=== PATIENT | male | born 1955 | race Caucasian/White ===

== ENCOUNTER → 2018-06-09 14:30 | Outpatient (CLI) | payer OTHER | END | disposition home or self-care (01) | LOC: D.MRI 14:30 | DX: M25.571 Pain in right ankle and joints of right foot (principal) ==

== ENCOUNTER 2018-07-06 10:15 | Day surgery (SDC) | payer OTHER ==
[2018-07-05 14:13] LABS: HEMATOCRIT 36.8 % (42.0-54.0); MCH 31.4 pg (26.0-34.0); MCHC 35.3 g/dL (31.0-37.0); MCV 88.9 fL (80.0-100.0); MEAN PLATELET VOLUME 9.2 fL (7.4-10.4); RBC 4.14 10x6/uL (4.20-6.10); WBC 6.5 10x3/uL (4.8-10.8)
[2018-07-05 14:35] LABS: CALCIUM 8.8 mg/dL (8.5-10.1); CARBON DIOXIDE 29.1 mmol/L (21.0-32.0); CREATININE - SERUM 1.1 mg/dL (0.6-1.3); POTASSIUM - SERUM 4.1 mmol/L (3.5-5.1)
[~2018-07-06] VITALS: Ht 180.3 cm; Wt 76.2 kg
[~2018-07-06 10:15] MED LIST: BAYER CHEWABLE81 MG PO; GLIPIZIDE10 MG PO; GLUCOPHAGE1000 MG PO; PRAVASTATIN SOD10 MG PO
[2018-07-06 13:07] VITALS: BP 153/82; Ht 180.3 cm; Wt 76.2 kg
[2018-07-06] MEDS ORDERED: HYDROCODON-ACE1 EA10 PO (15:19)
--- NOTE | 2018-07-06 19:12 | NUR ---
1729-PRESCRIPTION TO TO GET FILLED BEFORE PHARMACY CLOSES. 1899- RETURNS, DISCHARGE INSTRUCTIONS REVIEWED. 1904-D/C HOME VIA WHEELCHAIR.
--- NOTE | 2018-07-07 09:40 | OP ---
PATIENT NAME: KATE HUNT MEDICAL RECORD: [id number] :55 LOCATION:[facility] ADMISSION DATE: SURGEON: TARIK ROSE MD DATE OF OPERATION: 07/06/2018 PREOPERATIVE DIAGNOSES: 1. Right ankle instability. 2. 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 3. Intractable plantar keratosis, plantar aspect of right foot. POSTOPERATIVE DIAGNOSES. 1. Right ankle instability. 2. 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 3. Intractable plantar keratosis, plantar aspect of right foot. PROCEDURES: 1. Open Brostrom procedure of the lateral ankle with internal brace. 2. Open repair of a split peroneus brevis tendon. 3. Excision of intractable plantar keratosis with removal of portion of the bony condyle. SURGEON: Tarik Rose MD ANESTHESIA: General. INTRAOPERATIVE COMPLICATIONS: None. SUMMARY OF PATHOLOGIC FINDINGS: Consistent with preoperative diagnosis, the patient had a complete tear of the AITF as well as calcaneofibular ligament. Furthermore, the patient had a longitudinal split in the peroneus brevis again consistent with the MRI and lastly, the patient had a large intractable plantar keratosis with a prominent condyle. OPERATIVE SUMMARY IN DETAIL: After obtaining the appropriate preoperative orthopedic surgery consent as well as anesthetic consultation, evaluation, and clearance, the patient was brought to the operating room and placed on the operating table in the supine position. After general laryngeal mask airway was administered, tourniquet was placed in the proximal aspect of the right lower extremity. The patient was then placed in a left lateral decubitus position. All pressure points were well padded to include down leg peroneal pad as well as axillary roll. The patient was held firmly to the operating table using the vacuum pack suction system table. Right lower extremity was then prepped and draped in routine sterile fashion. The leg was elevated and exsanguinated, tourniquet inflated to 350 mmHg. A curvilinear incision was made directly over the midline of the fibula in order to do both operative indications at this site to one incision. Dissection was carried anteriorly. The absence of the AITF as well as the calcaneofibular were noted. A single 4.75 SwiveLock from [employer] was placed with a double stranded FiberTape into the nonarticular aspect of the calcaneus on the medial side, this was then anchored into the distal fibula tightly; however, using the hemostat to control the amount of tension, this was then secured. Having completed this, the tails of this were then anchored into the calcaneus again using the hemostat technique to prevent over tightening. This was also anchored with a 4.75 SwiveLock. Having completed this, the periosteum and residual retinaculum were oversewn in a [id number] imbricated style with 0 FiberWire. Having completed this, final closure was OPERATIVE REPORT [id number] KATE HUNT achieved with 2-0 Vicryl and 4-0 Prolene in running fashion. Next, attention was turned to the plantar aspect. An elliptical incision was made about the intractable plantar keratosis to incise the entire portion of the skin, taken down to the level of the plantar condyle, which was exposed in its entirety and a very small portion of it approximately 2.5 2 mm was removed in order to try and prevent further recurrence of the patient's intractable plantar keratosis. This incision was gently irrigated and closed with 2-0 Prolene with retention style sutures. Sterile dressings were applied. Tourniquet was deflated. Posterior L&U splint was applied. The patient was awakened and taken to recovery room in stable condition. All final needle and sponge counts were correct. TRANSINT:[id number] Voice Confirmation ID: [id number] DOCUMENT ID: [id number] MILTON GILL, TARIK GOEL at 0940 CC: [id number] DICTATION DATE: 07/06/18 1525 [employer] GENERATING: 07/06/18 2155 [facility] 07/06/18 [id number] [place] [address]
== END 2018-07-06 19:05 | disposition home or self-care (01) ==
LOC: D.OPS 10:15 → D.PAN 12:00 → D.OPS 12:30 → D.PAN 14:30 → D.OPS 14:30
PROVIDERS: Anesthesiology
DX: M25.371 Other instability, right ankle (principal); S86.311A Strain of muscle(s) and tendon(s) of peroneal muscle group at lower leg level, right leg, initial encounter; X58.XXXA Exposure to other specified factors, initial encounter; L85.1 Acquired keratosis [keratoderma] palmaris et plantaris; Z01.812 Encounter for preprocedural laboratory examination